=== PATIENT | female | born 1995 | race Caucasian/White ===

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

== ENCOUNTER 2017-09-09 10:57 | Emergency (ER) | payer BC, OTHER ==
[2017-09-09 14:15] VITALS: BP 112/67
--- NOTE | 2017-09-09 14:18 | UC ---
UC General HPI - HPI Summary HPI Summary: Pt states has had a cold for about 2 weeks. She is here with ongoing cough and congestion. Pt has a hx of childhood and exercise asthma. no cp, fever, bodyaches. no wheezing but lungs get tight. - History of Current Complaint Stated Complaint: SORE THROAT Time Seen by Provider: 09/09/17 14:04 Hx Obtained From: Patient Hx Last Menstrual Period: 2 weeks ago Onset/Duration: Gradual Onset, Still Present Timing: Constant Associated Signs & Symptoms: Positive: Cough. Negative: Chest Pain, Fever, Wheezing - Allergy/Home Medications Allergies/Adverse Reactions: Allergies Allergy/AdvReac Type Severity Reaction Status Date / Time pseudoephedrine Allergy Flushing Verified 09/09/17 14:07 PMH/Surg Hx/FS Hx/Imm Hx Respiratory History: Asthma Other History Of: Negative For: HIV - Surgical History Surgical History: None - Family History Known Family History: Positive: Diabetes - paternal grandfather Negative: Cardiac Disease - Social History Occupation: Student Alcohol Use: None Substance Use Type: None Smoking Status (MU): Never Smoked Tobacco - Immunization History Vaccination Up to Date: Yes Review of Systems Constitutional: Negative Skin: Negative Eyes: Negative ENT: Negative Respiratory: Cough, Other - sputum, tight lungs Cardiovascular: Negative Gastrointestinal: Negative Genitourinary: Negative Motor: Negative Neurovascular: Negative Musculoskeletal: Negative Neurological: Negative Psychological: Negative Is Patient Immunocompromised?: No All Other Systems Reviewed And Are Negative: Yes Physical Exam Triage Information Reviewed: Yes Appearance: Well-Appearing Vital Signs Reviewed: Yes Eyes: Positive: Conjunctiva Clear ENT: Positive: Pharynx normal, TMs normal - wax in canals. Negative: Nasal congestion, Nasal drainage Respiratory: Positive: Lungs clear, Normal breath sounds, Decreased breath sounds, Other: - NPC Cardiovascular: Positive: RRR, No Murmur Abdomen Description: Positive: Nontender, No Organomegaly, Soft Bowel Sounds: Positive: Present Musculoskeletal: Positive: No Edema Neurological: Positive: Alert Psychological: Positive: Age Appropriate Behavior Skin Exam: Normal Course/Dx - Course Course Of Treatment: cough with congestion x 2 weeks. will tx for asthma flare plus presumtive secondary infection. - Differential Dx - Multi-Symptom Provider Diagnoses: asthma flare Discharge - Discharge Plan Condition: Stable Disposition: HOME Prescriptions: Albuterol HFA INHALER* [Ventolin HFA Inhaler*] 2 puff INH Q6H 14 Days #1 mdi Azithromycin TAB* [Zithromax TAB (Z-LADI) 250 mg #6 tabs] 2 tab PO .TODAY, THEN 1 DAILY #1 ladi predniSONE TAB* [Deltasone TAB*] 40 mg PO DAILY 3 Days #6 tab Patient Education Materials: Asthma (DC) Referrals: Non Staff,Doctor [Primary Care Provider] - Additional Instructions: FOLLOW UP [facility] IN 5 DAYS FOR RECHECK OR SOONER IF WORSENING
== END 2017-09-09 14:35 | disposition home or self-care (01) ==
LOC: UCCORT 10:57
DX: J45.909 Unspecified asthma, uncomplicated (principal)
CPT/HCPCS: 99212; G0463